=== PATIENT | female | born 2000 | race African-American/Black ===

== ENCOUNTER 2020-08-12 10:30 | Inpatient (IN) | payer OTHER ==
[~2020-08-12] VITALS: Ht 160 cm; Wt 77.1 kg
[2020-08-12] MEDS ORDERED: TERBUTALINE SULFATE 1 MG/ML VIAL SQ PRN (11:00)
[2020-08-12] MEDS ORDERED: RINGERS SOLUTION,LACTATED 1,000 ML IV PRN (11:00)
[2020-08-12] MEDS ORDERED: METOCLOPRAMIDE HCL 5 MG/ML 2 ML VIAL IVP PRN (11:00)
[2020-08-12] MEDS ORDERED: CITRIC ACID/SODIUM CITRATE 30 ML SOLUTION UDCUP PO PRN (11:00)
[2020-08-12 11:39] LABS: BASOPHILS % (AUTO) 0.6 % (0.0-2.0); EOSINOPHILS % (AUTO) 0.3 % (1.0-6.0); HEMATOCRIT 35.9 % (36-46); HEMOGLOBIN 12.1 g/dL (12.0-16.0); LYMPHOCYTES # (AUTO) 1.2 K/uL (1.0-4.8); LYMPHOCYTES % (AUTO) 20.8 % (22.0-44.0); MEAN CORPUSCULAR HEMOGLOBIN 29.6 pg (26.0-34.0); MEAN CORPUSCULAR HGB CONC 33.6 G/dL (31.0-37.0); MEAN CORPUSCULAR VOLUME 88 fL (80-100); MONOCYTES # (AUTO) 0.5 K/uL (0.1-1.0); MONOCYTES % (AUTO) 8.8 % (2.0-9.0); NEUTROPHILS % (AUTO) 69.5 % (40.0-70.0); PLATELET COUNT (AUTO)-OB 257 K/uL (150-450); RED BLOOD CELL COUNT(AUTO) 4.08 MIL/uL (4.00-5.20)
[2020-08-12] MEDS ORDERED: DINOPROSTONE 10 MG VAGINAL SUPPOSITORY VG ONE (11:45)
[2020-08-12] MEDS ORDERED: OXYTOCIN 30 UNITS/LACT RINGERS 500 ML IV PRN (11:45)
[2020-08-12] MEDS: RINGERS SOLUTION,LACTATED 1,000 ML IV SCH ×2 (11:57→19:32)
[2020-08-12 12:37] LABS: COVID AG,FIA SOURCE NASOPHARYNGEAL
[2020-08-12] MEDS ORDERED: OXYGEN THERAPY IH SCH (20:00)
[2020-08-12] MEDS ORDERED: MISOPROSTOL 25 MCG TABLET PO ONE (20:15)
[2020-08-12] MEDS ORDERED: PNV1TABL77 PO (22:33)
[2020-08-12] MEDS ORDERED: -PHARMACY NOTE- MISC ONE (23:45)
[2020-08-13] MEDS ORDERED: MISOPROSTOL 50 MCG TABLET PO SCH (00:30)
[2020-08-13] MEDS: FentaNYL CITRATE PF 100 MCG/2 ML VIAL IVP PRN ×2 (03:18→03:22)
[2020-08-13] MEDS: RINGERS SOLUTION,LACTATED 1,000 ML IV SCH ×3 (03:22→11:58)
[2020-08-13] MEDS ORDERED: ROPIVACAINE HCL/PF 0.2% 100 ML ED ONE ×2 (04:43→12:27)
[2020-08-13] MEDS ORDERED: AMPICILLIN SODIUM 2 GM/NS 100 ML IV ONE (05:30)
[2020-08-13] MEDS ORDERED: OXYTOCIN 30 UNITS/LACT RINGERS 500 ML IV PRN (05:45)
[2020-08-13] MEDS ORDERED: AMPICILLIN SODIUM 1 GM/NS 50 ML IV SCH (09:30)
[2020-08-13] MEDS ORDERED: GLYCERIN/WITCH HAZEL LEAF 40 PADS JAR TP PRN (14:15)
[2020-08-13] MEDS ORDERED: LIDOCAINE/PF 1% 30 ML VIAL SQ PRN (14:15)
[2020-08-13] MEDS ORDERED: MAGNESIUM HYDROXIDE SUSPENSION 30 ML UDCUP PO PRN (14:15)
[2020-08-13] MEDS ORDERED: BENZOCAINE 20%/MENTHOL 56 GM SPRAY CANISTER TP PRN (14:15)
[2020-08-13] MEDS ORDERED: OXYTOCIN 30 UNITS/LACT RINGERS 500 ML IV ONE (14:15)
[2020-08-13] MEDS ORDERED: OxyCODONE HCL/ACETAMINOPHEN 5-325 MG TABLET PO PRN ×2 (14:15)
[2020-08-13] MEDS ORDERED: LANOLIN 7 GM OINTMENT TP PRN (14:15)
[2020-08-13] MEDS: IBUPROFEN 800 MG TABLET PO PRN ×2 (14:25→22:28)
[2020-08-13 21:17] VITALS: BP 114/64
[2020-08-14 06:37] LABS: BASOPHILS % (AUTO) 0.3 % (0.0-2.0); EOSINOPHILS % (AUTO) 0.4 % (1.0-6.0); LYMPHOCYTES # (AUTO) 1.9 K/uL (1.0-4.8); MEAN CORPUSCULAR HEMOGLOBIN 29.3 pg (26.0-34.0); MEAN CORPUSCULAR HGB CONC 33.3 G/dL (31.0-37.0); MEAN CORPUSCULAR VOLUME 88 fL (80-100); MONOCYTES # (AUTO) 1.4 K/uL (0.1-1.0); MONOCYTES % (AUTO) 11.3 % (2.0-9.0); NEUTROPHILS # (AUTO) 9.3 K/uL (1.8-7.7); PLATELET COUNT (AUTO)-OB 237 K/uL (150-450); RED BLOOD CELL COUNT(AUTO) 3.74 MIL/uL (4.00-5.20)
[2020-08-14] MEDS ORDERED: IBUP-2071 PO (11:10)
[2020-08-14] MEDS ORDERED: FERR-89 PO (11:11)
[2020-08-14] MEDS ORDERED: DOCU-275 PO (11:12)
[2020-08-14] MEDS: IBUPROFEN 800 MG TABLET PO PRN (17:23)
== END 2020-08-14 17:30 | disposition home or self-care (01) | DRG 560 ==
LOC: 4S 10:51 → OBSVTOIN 11:02
PROVIDERS: ADMIT Obstetrics & Gynecology Obstetrics; ATTEND Obstetrics & Gynecology Obstetrics
PROC: 10E0XZZ Delivery of Products of Conception, External Approach (ICD-10-PCS; principal; 2020-08-13)
PROC: 10907ZC Drainage of Amniotic Fluid, Therapeutic from Products of Conception, Via Natural or Artificial Opening (ICD-10-PCS; 2020-08-13)
PROC: 3E0R3BZ Introduction of Anesthetic Agent into Spinal Canal, Percutaneous Approach (ICD-10-PCS; 2020-08-13)
PROC: 00HU33Z Insertion of Infusion Device into Spinal Canal, Percutaneous Approach (ICD-10-PCS; 2020-08-13)
PROC: 3E0334Z Introduction of Serum, Toxoid and Vaccine into Peripheral Vein, Percutaneous Approach (ICD-10-PCS; 2020-08-13)
DX: O76 Abnormality in fetal heart rate and rhythm complicating labor and delivery (principal); O36.5930 Maternal care for other known or suspected poor fetal growth, third trimester, not applicable or unspecified; O69.81X0 Labor and delivery complicated by cord around neck, without compression, not applicable or unspecified; O99.824 Streptococcus B carrier state complicating childbirth; Z3A.39 39 weeks gestation of pregnancy; Z37.0 Single live birth; Z29.13 Encounter for prophylactic Rho(D) immune globulin; Z20.822 Contact with and (suspected) exposure to COVID-19
CPT/HCPCS: 85025; 85461; 86850; 86900; 86901; 87426; 99219; A9575; J0290; J2590; J2795; J3010; J7120